=== PATIENT | female | born 1940 | race Caucasian/White ===

== ENCOUNTER 2019-01-11 23:26 | Inpatient (IN) ==
[2019-01-11] MEDS ORDERED: SODIUM CHLORIDE 0.9% 1,000 ML IV STA (23:43)
[2019-01-11 23:49] LABS: Basophils # 0.1 10*3/uL (0.0-0.2); Basophils % 0.5 % (0.0-0.8); Eosinophils # 0.2 10*3/uL (0.0-0.87); Eosinophils % 1.4 % (0.00-10.9); Hematocrit 36.1 VOL% (35.7-47.0); Hemoglobin 11.1 GM/DL (12.0-16.0); Immature Granulocytes % 2.2 %; Immature Granulocytes Absolute 0.24 #; Lymphocytes # 2.2 10*3/uL (1.4-4.0); Lymphocytes % 20.1 % (21.3-54.2); Mean Corpuscular HGB Conc 30.7 GM/DL (32-36); Mean Corpuscular Volume 95.3 FL (87-102); Monocytes % 20.2 % (1.7-12.7); NRBC # 0.02 10*3/uL; Neutrophils % 55.6 % (38.7-73.9); Platelet Count 343 T/CUMM (130-400); Red Blood Count 3.79 MC/CUMM (3.8-5.5); Red Cell Distribution Width 17.8 % (9.3-17.3); White Blood Count 11.1 T/CUMM (4-12)
[2019-01-11 23:57] LABS: INR 1.2; PT Patient Result 12.5 SECS (9.6-12.2)
[2019-01-12 00:18] LABS: Alanine Aminotransferase 13 U/L (13-56); Albumin 1.7 G/DL (3.4-5.0); Alkaline Phosphatase 69 U/L (45-117); Aspartate Amino Transferase 40 U/L (0-37); Blood Urea Nitrogen 40 MG/DL (7-18); Calcium 9.6 MG/DL (8.5-10.1); Glucose 151 MG/DL (74-106); Osmolality,Calculated 302.6 MOS/KG (273-304); Total Protein 7.5 G/DL (6.4-8.3); Troponin I < 0.015 NG/ML (0.00-0.045)
[2019-01-12 00:29] LABS: Apearance,Urine Slightly Hazy (Clear); Bilirubin,Urine Negative (Negative); Blood, Urine Negative (Negative); Glucose,Urine (UA) Negative (Negative); Granular Casts,Urine 3 /LPF (0-1); Hyaline Casts,Urine 140 /LPF (0-3); Ketones,Urine 5 mg/dL (Negative); Mucus,Urine Occasional /LPF (Occasional); Nitrite,Urine Negative (Negative); Protein,Urine Negative; RBC,Urine 1 /HPF (0-4); Squamous Epithelial Cell,Urine Occasional /HPF (0-10); Urine Color Yellow (Yellow); Urine Specific Gravity 1.021 (1.001-1.035); Urine Urobilinogen < 2.0 EU/DL (0.2-1.0); WBC,Urine <1 /HPF (0-6)
[2019-01-12] MEDS ORDERED: LORazepam 2 MG/1 ML VIAL IV STA (00:56)
[2019-01-12] MEDS ORDERED: LORazepam 2 MG/1 ML VIAL ONE (00:57)
[2019-01-12 01:10] LABS: Band Neutrophils 1 % (0-10); Lymphocytes 21 % (20-55); Segmented Neutrophils 59 % (50-85); Total Cells Counted 100
[2019-01-12 01:12] LABS: Platelet Estimate Normal; Polychromasia Few
[2019-01-12 01:13] LABS: Hypochromasia 2+
[2019-01-12] MEDS ORDERED: ACETAMINOPHEN 500 MG TABLET PO PRN (03:30)
[2019-01-12] MEDS ORDERED: FEXOFENADINE 60 MG TABLET PO PRN (03:30)
[2019-01-12] MEDS ORDERED: GLUCAGON 1 MG VIAL IM PRN (03:30)
[2019-01-12] MEDS ORDERED: SODIUM CHLORIDE 0.65% NASAL SPRAY 45 ML BOTTLE BOTH NARES PRN (03:30)
[2019-01-12] MEDS ORDERED: ONDANSETRON 4 MG/2 ML VIAL IV PRN (03:30)
[2019-01-12] MEDS ORDERED: DEXTROSE 50% 25 GM/50 ML VIAL IV PRN (03:30)
[2019-01-12] MEDS: SODIUM CHLORIDE 0.9% 1,000 ML IV SCH ×2 (03:30→11:43)
[2019-01-12 06:33] LABS: Basophils # 0.1 10*3/uL (0.0-0.2); Basophils % 0.6 % (0.0-0.8); Eosinophils # 0.1 10*3/uL (0.0-0.87); Eosinophils % 0.6 % (0.00-10.9); Hematocrit 34.6 VOL% (35.7-47.0); Hemoglobin 10.7 GM/DL (12.0-16.0); Immature Granulocytes % 2.3 %; Immature Granulocytes Absolute 0.25 #; Lymphocytes # 1.8 10*3/uL (1.4-4.0); Lymphocytes % 16.6 % (21.3-54.2); Mean Corpuscular HGB Conc 30.9 GM/DL (32-36); Mean Corpuscular Volume 95.6 FL (87-102); Monocytes % 20.9 % (1.7-12.7); Platelet Count 330 T/CUMM (130-400); Red Blood Count 3.62 MC/CUMM (3.8-5.5); Red Cell Distribution Width 17.5 % (9.3-17.3)
[2019-01-12 06:57] LABS: Band Neutrophils 1 % (0-10); Eosinophils 1 % (0-10); Hypochromasia 1+; Lymphocytes 12 % (20-55); Platelet Estimate Adequate; Segmented Neutrophils 68 % (50-85); Total Cells Counted 100
[2019-01-12 07:02] LABS: Calcium 9.3 MG/DL (8.5-10.1); Osmolality,Calculated 303.6 MOS/KG (273-304)
[2019-01-12] MEDS: INSULIN REGULAR 100 UNIT/ML SUBCUT SCH ×4 (07:54→21:11)
[2019-01-12] MEDS ORDERED: POLYVINYL ALCOHOL 1.4% OPH SOLN 15 ML BOTTLE BOTH EYES PRN (08:00)
[2019-01-12] MEDS ORDERED: CHOLECALCIFEROL 5,000 UNIT TABLET PO SCH (08:00)
[2019-01-12] MEDS ORDERED: RALOXIFENE 60 MG TABLET PO SCH (08:00)
[2019-01-12] MEDS ORDERED: ASPIRIN EC 81 MG TABLET PO SCH (08:00)
[2019-01-12] MEDS ORDERED: KETOROLAC 0.5% OPH SOLN 5 ML BOTTLE BOTH EYES PRN (08:30)
[2019-01-12] MEDS ORDERED: CALCIUM (CARBONATE)/VITAMIN D 500 MG-200 UNIT TABLET PO SCH (09:00)
[2019-01-12] MEDS ORDERED: POLYETHYLENE GLYCOL POWDER 17 GM PACK PO SCH (09:00)
[2019-01-12] MEDS ORDERED: MULTIVITAMIN (OCUVITE) TABLET PO SCH (09:00)
[2019-01-12] MEDS ORDERED: POTASSIUM CHLORIDE 20 MEQ TABLET PO SCH (09:00)
[2019-01-12] MEDS ORDERED: DOCUSATE SODIUM 100 MG CAPSULE PO SCH (09:00)
[2019-01-12] MEDS ORDERED: DOXYCYCLINE HYCLATE 100 MG CAPSULE PO SCH (09:00)
[2019-01-12] MEDS ORDERED: DIVALPROEX 500 MG TABLET PO SCH (09:00)
[2019-01-12] MEDS: ENOXAPARIN 30 MG/0.3 ML SYRINGE SUBCUT SCH (15:30)
[2019-01-12] MEDS: ZINC OXIDE PASTE 113 GM TUBE TOP SCH ×2 (15:47→20:54)
[2019-01-12] MEDS ORDERED: QUEtiapine 100 MG TABLET PO SCH (17:00)
[2019-01-12] MEDS: MEROPENEM 500 MG in SODIUM CHLORIDE 0.9% 100 ML IV SCH (17:05)
[2019-01-12] MEDS: DEXT 5% NACL 0.45% KCL 20 MEQ 20 MEQ/1,000 ML BAG IV SCH (17:05)
[2019-01-12] MEDS: AZITHROMYCIN INJ 500 MG in SODIUM CHLORIDE 0.9% 250 ML IV SCH (18:20)
[2019-01-12] MEDS ORDERED: PANTOPRAZOLE 40 MG TABLET PO SCH (21:00)
[2019-01-13] MEDS: MEROPENEM 500 MG in SODIUM CHLORIDE 0.9% 100 ML IV SCH ×2 (04:34→21:02)
[2019-01-13 06:12] LABS: Basophils % 0.4 % (0.0-0.8); Eosinophils # 0.3 10*3/uL (0.0-0.87); Eosinophils % 3.1 % (0.00-10.9); Hematocrit 34.9 VOL% (35.7-47.0); Hemoglobin 10.4 GM/DL (12.0-16.0); Immature Granulocytes Absolute 0.17 #; Lymphocytes % 24.4 % (21.3-54.2); Mean Corpuscular HGB Conc 29.8 GM/DL (32-36); Mean Corpuscular Volume 96.4 FL (87-102); Mean Platelet Volume 9.2 FL (9.6-12.0); Monocytes % 17.5 % (1.7-12.7); Neutrophils % 52.6 % (38.7-73.9); Platelet Count 313 T/CUMM (130-400); Red Blood Count 3.62 MC/CUMM (3.8-5.5); White Blood Count 8.3 T/CUMM (4-12)
[2019-01-13 06:18] LABS: Calcium 9.2 MG/DL (8.5-10.1)
[2019-01-13 06:34] LABS: Band Neutrophils 1 % (0-10); Eosinophils 3 % (0-10); Hypochromasia 1+; Lymphocytes 23 % (20-55); Ovalocytes Slight; Platelet Estimate Adequate; Segmented Neutrophils 57 % (50-85); Total Cells Counted 100
[2019-01-13] MEDS ORDERED: BISACODYL 5 MG TABLET PO PRN (08:00)
[2019-01-13] MEDS: MEPERIDINE 25 MG/1 ML VIAL IV PRN ×2 (08:20→15:51)
[2019-01-13] MEDS: INSULIN REGULAR 100 UNIT/ML SUBCUT SCH ×4 (09:00→20:50)
[2019-01-13] MEDS: DEXT 5% NACL 0.45% KCL 20 MEQ 20 MEQ/1,000 ML BAG IV SCH (09:40)
[2019-01-13] MEDS: ZINC OXIDE PASTE 113 GM TUBE TOP SCH ×2 (09:41→21:02)
[2019-01-13] MEDS: ENOXAPARIN 30 MG/0.3 ML SYRINGE SUBCUT SCH (09:41)
[2019-01-13] MEDS: ACETAMINOPHEN 650 MG SUPP RECTAL PRN (15:51)
[2019-01-13] MEDS: AZITHROMYCIN INJ 500 MG in SODIUM CHLORIDE 0.9% 250 ML IV SCH (19:25)
[2019-01-14] MEDS: DEXT 5% NACL 0.45% KCL 20 MEQ 20 MEQ/1,000 ML BAG IV SCH (01:10)
[2019-01-14] MEDS: MEPERIDINE 25 MG/1 ML VIAL IV PRN ×4 (01:26→21:43)
[2019-01-14 05:41] LABS: Basophils # 0.1 10*3/uL (0.0-0.2); Basophils % 0.6 % (0.0-0.8); Eosinophils # 0.8 10*3/uL (0.0-0.87); Eosinophils % 9.7 % (0.00-10.9); Hemoglobin 9.6 GM/DL (12.0-16.0); Immature Granulocytes % 1.9 %; Immature Granulocytes Absolute 0.16 #; Lymphocytes # 2.4 10*3/uL (1.4-4.0); Lymphocytes % 27.8 % (21.3-54.2); Mean Corpuscular Volume 97.9 FL (87-102); Monocytes % 17.4 % (1.7-12.7); Neutrophils % 42.6 % (38.7-73.9); Platelet Count 285 T/CUMM (130-400); Red Blood Count 3.27 MC/CUMM (3.8-5.5); Red Cell Distribution Width 17.8 % (9.3-17.3); White Blood Count 8.6 T/CUMM (4-12)
[2019-01-14 06:05] LABS: Band Neutrophils 2 % (0-10); Eosinophils 9 % (0-10); Hypochromasia 1+; Lymphocytes 26 % (20-55); Platelet Estimate Adequate; Segmented Neutrophils 54 % (50-85); Total Cells Counted 100
[2019-01-14 06:15] LABS: Calcium 8.7 MG/DL (8.5-10.1); Osmolality,Calculated 299.3 MOS/KG (273-304)
[2019-01-14] MEDS: ENOXAPARIN 40 MG/0.4 ML SYRINGE SUBCUT SCH (10:07)
[2019-01-14] MEDS: INSULIN REGULAR 100 UNIT/ML SUBCUT SCH ×4 (10:08→21:34)
[2019-01-14] MEDS: MEROPENEM 500 MG in SODIUM CHLORIDE 0.9% 100 ML IV SCH ×3 (10:08→21:04)
[2019-01-14] MEDS: ZINC OXIDE PASTE 113 GM TUBE TOP SCH ×2 (10:14→21:05)
[2019-01-14] MEDS: DEXTROSE 5% 1,000 ML IV SCH (14:20)
[2019-01-14] MEDS: ACETAMINOPHEN 650 MG SUPP RECTAL PRN (16:42)
[2019-01-14] MEDS: AZITHROMYCIN INJ 500 MG in SODIUM CHLORIDE 0.9% 250 ML IV SCH (21:35)
[2019-01-15] MEDS: MEROPENEM 500 MG in SODIUM CHLORIDE 0.9% 100 ML IV SCH ×4 (03:03→20:50)
[2019-01-15 06:08] LABS: Basophils # 0.1 10*3/uL (0.0-0.2); Basophils % 0.6 % (0.0-0.8); Eosinophils % 11.8 % (0.00-10.9); Hematocrit 32.2 VOL% (35.7-47.0); Hemoglobin 9.5 GM/DL (12.0-16.0); Immature Granulocytes % 1.7 %; Immature Granulocytes Absolute 0.15 #; Lymphocytes % 34.4 % (21.3-54.2); Mean Corpuscular HGB Conc 29.5 GM/DL (32-36); Mean Platelet Volume 8.9 FL (9.6-12.0); Monocytes % 15.5 % (1.7-12.7); NRBC # 0.02 10*3/uL; Platelet Count 274 T/CUMM (130-400); Red Blood Count 3.32 MC/CUMM (3.8-5.5); Red Cell Distribution Width 17.5 % (9.3-17.3); White Blood Count 8.6 T/CUMM (4-12)
[2019-01-15 06:20] LABS: Calcium 8.5 MG/DL (8.5-10.1); Osmolality,Calculated 292.6 MOS/KG (273-304)
[2019-01-15 06:30] LABS: Eosinophils 17 % (0-10); Hypochromasia 1+; Lymphocytes 30 % (20-55); Platelet Estimate Adequate; Segmented Neutrophils 33 % (50-85); Total Cells Counted 100
[2019-01-15] MEDS: INSULIN REGULAR 100 UNIT/ML SUBCUT SCH ×4 (07:43→20:56)
[2019-01-15] MEDS: ENOXAPARIN 40 MG/0.4 ML SYRINGE SUBCUT SCH (11:42)
[2019-01-15] MEDS: ZINC OXIDE PASTE 113 GM TUBE TOP SCH ×2 (11:43→20:50)
[2019-01-15] MEDS: DEXTROSE 5% 1,000 ML IV SCH (12:33)
[2019-01-15] MEDS: MEPERIDINE 25 MG/1 ML VIAL IV PRN ×2 (12:34→20:56)
[2019-01-15] MEDS: AZITHROMYCIN INJ 500 MG in SODIUM CHLORIDE 0.9% 250 ML IV SCH (21:40)
[2019-01-16] MEDS: MEROPENEM 500 MG in SODIUM CHLORIDE 0.9% 100 ML IV SCH ×2 (03:58→09:19)
[2019-01-16] MEDS: DEXTROSE 5% 1,000 ML IV SCH (04:50)
[2019-01-16 06:31] LABS: Basophils % 0.5 % (0.0-0.8); Eosinophils # 0.9 10*3/uL (0.0-0.87); Eosinophils % 11.1 % (0.00-10.9); Hematocrit 31.8 VOL% (35.7-47.0); Hemoglobin 9.5 GM/DL (12.0-16.0); Immature Granulocytes % 1.4 %; Immature Granulocytes Absolute 0.11 #; Lymphocytes # 2.3 10*3/uL (1.4-4.0); Mean Corpuscular HGB Conc 29.9 GM/DL (32-36); Mean Corpuscular Volume 97.5 FL (87-102); Platelet Count 284 T/CUMM (130-400); Red Blood Count 3.26 MC/CUMM (3.8-5.5); Red Cell Distribution Width 17.2 % (9.3-17.3); White Blood Count 7.7 T/CUMM (4-12)
[2019-01-16 06:48] LABS: Calcium 8.6 MG/DL (8.5-10.1); Osmolality,Calculated 287.8 MOS/KG (273-304)
[2019-01-16 06:51] LABS: Eosinophils 11 % (0-10); Hypochromasia 1+; Lymphocytes 21 % (20-55); Platelet Estimate Adequate; Segmented Neutrophils 59 % (50-85); Total Cells Counted 100
[2019-01-16] MEDS: INSULIN REGULAR 100 UNIT/ML SUBCUT SCH ×2 (07:41→11:39)
[2019-01-16] MEDS: ENOXAPARIN 40 MG/0.4 ML SYRINGE SUBCUT SCH (09:19)
[2019-01-16 11:21] VITALS: BP 122/68
[2019-01-16] MEDS: ZINC OXIDE PASTE 113 GM TUBE TOP SCH (11:39)
[2019-01-16] MEDS ORDERED: DOXYCYCLINE MONOHYDRATE SUSP 5 MG/ML 60 ML/BOTTLE PO SCH (21:00)
[2019-01-16] MEDS ORDERED: NYSTATIN POWDER 15 GM BOTTLE TOP SCH (21:00)
== END 2019-01-16 15:08 | DRG 177 ==
LOC: EDUNIT# → EDBD → N.ED 23:26 → N.EDINP 23:26 → N.2E 01-12 03:01
PROVIDERS: ADMIT Hospitalist; ATTEND Hospitalist

== ENCOUNTER 2019-02-02 18:06 | Inpatient (IN) ==
[2019-02-02] MEDS ORDERED: ONDANSETRON 4 MG/2 ML VIAL IV STA (18:36)
[2019-02-02 19:50] LABS: ABG Base Excess 7.1 MMOL/L (-2.5-2.5); ABG HCO3 30.5 MMOL/L (20-26); ABG Oxygen Saturation 78.7 % (95-100); ABG PCO2 66.3 MM HG (35-48); ABG PH 7.335 (7.35-7.45); ABG PO2 48.6 MM HG (80-95); ABG TCO2 31.9 MMOL/L (23-27)
[2019-02-02 19:53] LABS: INR 1.7; PT Patient Result 18.2 SECS (9.6-12.2)
[2019-02-02 20:13] LABS: Basophils % 0.1 % (0.0-0.8); Eosinophils % 0.4 % (0.00-10.9); Hematocrit 39.2 VOL% (35.7-47.0); Hemoglobin 11.6 GM/DL (12.0-16.0); Immature Granulocytes % 1.5 %; Immature Granulocytes Absolute 0.13 #; Lymphocytes # 0.8 10*3/uL (1.4-4.0); Lymphocytes % 9.6 % (21.3-54.2); Mean Corpuscular HGB Conc 29.6 GM/DL (32-36); Mean Corpuscular Volume 98.7 FL (87-102); Mean Platelet Volume 10.4 FL (9.6-12.0); NRBC # 0.03 10*3/uL; Neutrophils % 77.4 % (38.7-73.9); Platelet Count 206 T/CUMM (130-400); Red Blood Count 3.97 MC/CUMM (3.8-5.5); Red Cell Distribution Width 20.2 % (9.3-17.3); White Blood Count 8.6 T/CUMM (4-12)
[2019-02-02 20:14] LABS: Alanine Aminotransferase 13 U/L (13-56); Albumin 2.1 G/DL (3.4-5.0); Alkaline Phosphatase 111 U/L (45-117); Aspartate Amino Transferase 36 U/L (0-37); Bilirubin,Total < 0.39 MG/DL (0.2-1.0); Blood Urea Nitrogen 39 MG/DL (7-18); Calcium 10.6 MG/DL (8.5-10.1); Estimated Glom Filtration Rate 53 ML/MIN; Glucose 177 MG/DL (74-106); Total Protein 7.9 G/DL (6.4-8.3); Troponin I < 0.015 NG/ML (0.00-0.045)
[2019-02-02 20:42] LABS: Apearance,Urine Slightly Hazy (Clear); Bilirubin,Urine Negative (Negative); Blood, Urine Negative (Negative); Glucose,Urine (UA) Negative (Negative); Hyaline Casts,Urine 19 /LPF (0-3); Ketones,Urine 5 mg/dL (Negative); Mucus,Urine Occasional /LPF (Occasional); Nitrite,Urine Negative (Negative); Protein,Urine Negative; RBC,Urine 1 /HPF (0-4); Urine Color Amber (Yellow); Urine Specific Gravity 1.025 (1.001-1.035); Urine Urobilinogen < 2.0 EU/DL (0.2-1.0); WBC,Urine 1 /HPF (0-6)
[2019-02-02] MEDS ORDERED: SODIUM CHLORIDE 0.9% 3,550 ML IV ONE ×2 (20:46)
[2019-02-02] MEDS ORDERED: PIPERACILLIN/TAZOBACTAM 3,375 MG in SODIUM CHLORIDE 0.9% 100 ML IV STA (20:48)
[2019-02-02] MEDS ORDERED: DOXYCYCLINE HYCLATE INJ 100 MG in SODIUM CHLORIDE 0.9% 100 ML IV STA (20:49)
[2019-02-02] MEDS ORDERED: ENOXAPARIN 100 MG/ML SYRINGE SUBCUT STA (20:58)
[2019-02-02] MEDS ORDERED: MORPHINE 4 MG/1 ML VIAL ONE (21:13)
[2019-02-02] MEDS ORDERED: MORPHINE 4 MG/1 ML VIAL IV ONE (21:14)
[2019-02-02 21:20] LABS: ABG Base Excess 7.8 MMOL/L (-2.5-2.5); ABG HCO3 31.5 MMOL/L (20-26); ABG Oxygen Saturation 94.6 % (95-100); ABG PCO2 59.4 MM HG (35-48); ABG PH 7.377 (7.35-7.45); ABG PO2 75.1 MM HG (80-95); ABG TCO2 31.4 MMOL/L (23-27); Allen Test Positive; Pt O2 Delivery Device Other
[2019-02-02 21:25] LABS: Anisocytosis 1+; Hypochromasia Slight; Macrocytosis 1+
[2019-02-02 21:26] LABS: Platelet Estimate Normal
[2019-02-02] MEDS ORDERED: ONDANSETRON 4 MG/2 ML VIAL IV PRN (21:53)
[2019-02-02] MEDS ORDERED: SODIUM CHLORIDE 0.9% 1,000 ML IV SCH ×2 (22:00→22:30)
[2019-02-02 23:13] LABS: Calcium 10.1 MG/DL (8.5-10.1); Osmolality,Calculated 297.8 MOS/KG (273-304)
[2019-02-02] MEDS: ALBUTEROL/IPRATROPIUM 3 ML NEB RESP TX SCH (23:24)
[2019-02-02 23:37] LABS: ABG Base Excess 7.4 MMOL/L (-2.5-2.5); ABG HCO3 31.1 MMOL/L (20-26); ABG Oxygen Saturation 95.5 % (95-100); ABG PCO2 64.3 MM HG (35-48); ABG PH 7.346 (7.35-7.45); ABG PO2 81.1 MM HG (80-95); Allen Test Positive; Pt O2 Delivery Device Other
[2019-02-02] MEDS: MEROPENEM 1,000 MG in SODIUM CHLORIDE 0.9% 100 ML IV SCH (23:39)
[2019-02-02 23:50] LABS: Amorphous Crystals,Urine Occasional /HPF (Few); Apearance,Urine Slightly Hazy (Clear); Bilirubin,Urine Negative (Negative); Blood, Urine Negative (Negative); Glucose,Urine (UA) Negative (Negative); Hyaline Casts,Urine 5 /LPF (0-3); Ketones,Urine 5 mg/dL (Negative); Mucus,Urine Occasional /LPF (Occasional); Nitrite,Urine Negative (Negative); Protein,Urine 30 MG/DL; RBC,Urine 10 /HPF (0-4); Squamous Epithelial Cell,Urine Occasional /HPF (0-10); Urine Color Amber (Yellow); Urine Specific Gravity 1.025 (1.001-1.035); Urine Urobilinogen < 2.0 EU/DL (0.2-1.0); WBC,Urine 2 /HPF (0-6)
[2019-02-03 02:00] LABS: Alanine Aminotransferase 11 U/L (13-56); Albumin 1.6 G/DL (3.4-5.0); Alkaline Phosphatase 95 U/L (45-117); Aspartate Amino Transferase 25 U/L (0-37); Bilirubin,Total < 0.39 MG/DL (0.2-1.0); Blood Urea Nitrogen 38 MG/DL (7-18); Calcium 8.9 MG/DL (8.5-10.1); Estimated Glom Filtration Rate 52 ML/MIN; Glucose 123 MG/DL (74-106); Osmolality,Calculated 305.1 MOS/KG (273-304)
[2019-02-03 02:08] LABS: Basophils % 0.1 % (0.0-0.8); Eosinophils % 0.1 % (0.00-10.9); Immature Granulocytes % 1.5 %; Immature Granulocytes Absolute 0.16 #; Lymphocytes % 9.3 % (21.3-54.2); Mean Corpuscular HGB Conc 28.9 GM/DL (32-36); Mean Corpuscular Volume 101.9 FL (87-102); Mean Platelet Volume 9.3 FL (9.6-12.0); Monocytes % 16.9 % (1.7-12.7); NRBC # 0.03 10*3/uL; Neutrophils % 72.1 % (38.7-73.9); Platelet Count 276 T/CUMM (130-400); Red Blood Count 3.16 MC/CUMM (3.8-5.5); Red Cell Distribution Width 19.9 % (9.3-17.3); White Blood Count 10.7 T/CUMM (4-12)
[2019-02-03 02:32] LABS: Hematocrit 32.1 VOL% (35.7-47.0); Hemoglobin 9.3 GM/DL (12.0-16.0)
[2019-02-03] MEDS: MORPHINE 4 MG/1 ML VIAL IV PRN (02:51)
[2019-02-03 03:04] LABS: Band Neutrophils 17 % (0-10); Lymphocytes 7 % (20-55); Segmented Neutrophils 66 % (50-85); Total Cells Counted 100
[2019-02-03 03:05] LABS: Anisocytosis 1+; Hypochromasia 1+; Platelet Estimate Adequate; Target Cells 1+
[2019-02-03] MEDS: ALBUTEROL/IPRATROPIUM 3 ML NEB RESP TX SCH ×6 (03:39→23:55)
[2019-02-03] MEDS ORDERED: SODIUM CHLORIDE 0.9% 1,000 ML IV SCH ×2 (03:40→07:20)
[2019-02-03 03:55] LABS: ABG Base Excess 3.1 MMOL/L (-2.5-2.5); ABG HCO3 27.1 MMOL/L (20-26); ABG Oxygen Saturation 92.7 % (95-100); ABG PCO2 63.9 MM HG (35-48); ABG PH 7.296 (7.35-7.45); ABG TCO2 28.7 MMOL/L (23-27); Allen Test Positive; Pt O2 Delivery Device Other
[2019-02-03] MEDS: MEROPENEM 1,000 MG in SODIUM CHLORIDE 0.9% 100 ML IV SCH ×3 (06:00→23:09)
[2019-02-03] MEDS: ENOXAPARIN 40 MG/0.4 ML SYRINGE SUBCUT SCH (10:47)
[2019-02-03] MEDS: SODIUM CHLORIDE 0.45% 1,000 ML IV SCH ×2 (12:57→21:54)
[2019-02-03] MEDS: THEOPHYLLINE ER (24 HR) 400 MG CAPSULE PO SCH (14:19)
[2019-02-03] MEDS ORDERED: traZODone 50 MG TABLET PO ONE (22:33)
[2019-02-03] MEDS ORDERED: LORazepam 2 MG/1 ML VIAL IM ONE (22:44)
[2019-02-04] MEDS: ALBUTEROL/IPRATROPIUM 3 ML NEB RESP TX SCH ×5 (04:08→20:45)
[2019-02-04 04:20] LABS: ABG Base Excess 2.4 MMOL/L (-2.5-2.5); ABG HCO3 28.3 MMOL/L (20-26); ABG Oxygen Saturation 90.9 % (95-100); ABG PCO2 50.6 MM HG (35-48); ABG PH 7.366 (7.35-7.45); ABG TCO2 29.9 MMOL/L (23-27)
[2019-02-04 05:01] LABS: Basophils % 0.2 % (0.0-0.8); Eosinophils # 0.2 10*3/uL (0.0-0.87); Eosinophils % 1.4 % (0.00-10.9); Hematocrit 30.2 VOL% (35.7-47.0); Hemoglobin 8.9 GM/DL (12.0-16.0); Immature Granulocytes % 1.8 %; Lymphocytes # 1.8 10*3/uL (1.4-4.0); Lymphocytes % 16.7 % (21.3-54.2); Mean Corpuscular HGB Conc 29.5 GM/DL (32-36); Mean Corpuscular Volume 98.7 FL (87-102); Mean Platelet Volume 9.6 FL (9.6-12.0); Monocytes % 13.8 % (1.7-12.7); NRBC # 0.03 10*3/uL; Neutrophils % 66.1 % (38.7-73.9); Platelet Count 258 T/CUMM (130-400); Red Blood Count 3.06 MC/CUMM (3.8-5.5); Red Cell Distribution Width 20.9 % (9.3-17.3); White Blood Count 11.1 T/CUMM (4-12)
[2019-02-04 05:20] LABS: Calcium 8.4 MG/DL (8.5-10.1); Osmolality,Calculated 302.1 MOS/KG (273-304)
[2019-02-04 05:26] LABS: Band Neutrophils 17 % (0-10); Eosinophils 2 % (0-10); Hypochromasia 1+; Lymphocytes 8 % (20-55); Platelet Estimate Adequate; Segmented Neutrophils 61 % (50-85); Total Cells Counted 100
[2019-02-04] MEDS: HALOPERIDOL 5 MG/ML AMP IV ONE ×2 (05:39→05:47)
[2019-02-04] MEDS ORDERED: HALOPERIDOL 5 MG/ML AMP IM ONE (06:00)
[2019-02-04] MEDS: MEROPENEM 1,000 MG in SODIUM CHLORIDE 0.9% 100 ML IV SCH ×3 (06:01→21:34)
[2019-02-04] MEDS: SODIUM CHLORIDE 0.45% 1,000 ML IV SCH ×2 (08:00→17:03)
[2019-02-04] MEDS: ENOXAPARIN 40 MG/0.4 ML SYRINGE SUBCUT SCH (09:32)
[2019-02-04] MEDS ORDERED: ZIPRASIDONE 20 MG/1 ML VIAL IM PRN ×2 (14:26→17:08)
[2019-02-04] MEDS: THEOPHYLLINE ER (24 HR) 400 MG CAPSULE PO SCH (14:46)
[2019-02-04] MEDS: MORPHINE 4 MG/1 ML VIAL IV PRN (15:55)
[2019-02-04] MEDS ORDERED: HALOPERIDOL 5 MG/ML AMP IV PRN (17:05)
[2019-02-04] MEDS ORDERED: diphenhydrAMINE 50 MG/1 ML VIAL IV PRN (17:06)
[2019-02-04] MEDS ORDERED: ACETAMINOPHEN 650 MG SUPP RECTAL PRN (20:46)
[2019-02-05] MEDS: ALBUTEROL/IPRATROPIUM 3 ML NEB RESP TX SCH ×5 (00:08→14:21)
[2019-02-05] MEDS: MEROPENEM 1,000 MG in SODIUM CHLORIDE 0.9% 100 ML IV SCH ×2 (05:27→14:21)
[2019-02-05] MEDS: MORPHINE 4 MG/1 ML VIAL IV PRN (06:10)
[2019-02-05] MEDS ORDERED: HALOPERIDOL 5 MG/ML AMP IM PRN (07:00)
[2019-02-05] MEDS: SODIUM CHLORIDE 0.45% 1,000 ML IV SCH ×2 (09:05→14:21)
[2019-02-05] MEDS: THEOPHYLLINE ER (24 HR) 400 MG CAPSULE PO SCH (09:28)
[2019-02-05] MEDS: ENOXAPARIN 40 MG/0.4 ML SYRINGE SUBCUT SCH (09:28)
[2019-02-05 12:12] VITALS: BP 115/77
== END 2019-02-05 14:15 | disposition hospice, inpatient (51) | DRG 177 ==
LOC: EDUNIT# → EDBD → N.ED 18:06 → N.EDINP 21:53 → SUATTDRO 21:53 → N.ICU 22:04 → N.2E 02-03 14:47
PROVIDERS: ADMIT Internal Medicine; ATTEND Internal Medicine